=== PATIENT | female | born 1965 | race Caucasian/White ===

== ENCOUNTER → 2016-10-04 07:37 | Day surgery (SDC) | payer BC ==
--- NOTE | 2016-09-23 21:34 | HP ---
PREOPERATIVE HISTORY AND PHYSICAL: DATE OF ADMISSION: 10/04/16 This patient is scheduled for same-day surgery admission by Dr. Rosario on Friday , 10/04/16. DATE OF PREOPERATIVE HISTORY AND PHYSICAL EXAMINATION: 09/23/16. ATTENDING SURGEON: Dr. Angela Rosario (dictated by Shanta Rangel NP) CHIEF COMPLAINT: Left breast bloody nipple discharge. HISTORY OF PRESENT ILLNESS: The patient is a 51-year-old female recently evaluated by Dr. Rosario for bloody left nipple discharge. The patient has noticed intermittent bleeding from the left nipple central duct spontaneously over the past 3 years. Occasionally, there is associated tenderness. It started in association with an episode of the nipple being very firm for 48 hours. She denies any family history of breast or ovarian cancer and denies any personal history of breast biopsies or breast complaints. She was age 9 at menarche and 42 at menopause. She was on control briefly in 1985, but denies other hormone use. She had a bilateral mammogram in June 2016, which was negative for malignant findings and also underwent an ultrasound of the left breast, which was negative for any significant findings. Dr. Rosario has examined the patient and has recommended left breast terminal duct excision as a same-day surgery procedure and described the nature of the surgical procedure, the rationale for the procedure, the relevant risks, benefits, and alternatives, and today I reviewed the expected postoperative care and recovery. The patient has had a chance to ask questions and stated that she understands the information and is satisfied with the answers given to her questions. She will sign surgical consent on the day of surgery. PAST MEDICAL HISTORY: Significant for hypertension and acid reflux; she is followed for primary care by Dr. Fatmata Bailey. PAST SURGICAL HISTORY: section in 1990 and 1995. MEDICATIONS: 1. Metoprolol 25 mg p.o. b.i.d. 2. Pantoprazole 40 mg p.o. daily in the morning. 3. Estrace 0.1 mg/g twice weekly. 4. Vitamin D supplement, cranberry supplement, and probiotic. ALLERGIES: PENICILLIN and SULFA drugs caused rash. CASHEW NUTS caused coughing , sneezing, and itchy throat. FAMILY HISTORY: No known breast cancer or ovarian cancer; no known anesthesia complications, bleeding tendencies, or clotting disorders. 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 She quit smoking 25 years ago. She drinks on average one alcoholic beverage per week and 1 cup of decaf daily. REVIEW OF SYSTEMS: She denies any recent acute illnesses or constitutional symptoms. She denies any history of angina or myocardial infarction; she is treated for hypertension; she denies any chest pain, pressure, palpitations, or dizziness; she denies any history of deep vein thrombosis or pulmonary embolism. She denies any respiratory conditions or complaints. She quit smoking 25 years ago; she denies any previous anesthesia reactions. She has had acid reflux and is being treated with pantoprazole and is going to have the head of her bed elevated; she denies any other gastrointestinal complaints. She denies any genitourinary complaints or conditions. She denies any bleeding tendencies and has never received a blood transfusion. She denies any musculoskeletal complaints and denies any neurologic complaints. PHYSICAL EXAMINATION GENERAL SURVEY: The patient is a 51-year-old female, obese, well developed, in no acute distress. VITAL SIGNS: Height 63 inches, weight 234 pounds, body mass index 41.4, blood pressure 160/98, pulse 63 and regular, respiratory rate 16, temperature 98.2 tympanic. HEENT: Benign. NECK: Supple. No cervical lymphadenopathy. No thyromegaly. BACK: No CVA tenderness. LUNGS: Breath sounds bilaterally clear and equal. HEART: Regular rate and rhythm. No murmurs or rubs appreciated. BREASTS: Asymmetric, right greater than left. No skin dimpling. No nipple retraction bilaterally. Palpation of the right breast reveals no discrete masses or nipple discharge. Palpation of the left breast reveals no discrete masses, but there is bloody nipple discharge along with some solid material. ABDOMEN: Obese, active bowel sounds, soft, nondistended, nontender throughout, no obvious masses, organomegaly, or evidence of umbilical hernia. PELVIC AND RECTAL: Done within the past year, not repeated. EXTREMITIES: Warm without edema or skin ulcerations. NEUROLOGIC: Alert and oriented x3. Steady gait. SKIN: Warm, dry, and intact. IMPRESSION: Bloody nipple discharge, left breast; the surgical pathology revealed a fragment of benign intraductal papilloma. PLAN: Same-day surgery admission to Dr. Rosario's service on 10/04/16, for left breast terminal duct excision. SHANTA RANGEL NP CC: Dr. Rosario; [facility]; Dr. Fatmata Bailey * [id number]/[facility] #: [id number] [facility]
[~2016-10-04 07:37] MED LIST: Buffered Lidocaine 1% SYRIN* 3 ML/SYR SYRINGE INTRADERM ONE; Bupivacaine 0.5% SDV PF* 30 ML VIAL ONE; Bupivacaine 0.5% W/EPI SDV* 30 ML VIAL ONE; Dexamethasone IV* 4 MG/ML 1 ML (4 MG) ONE; Famotidine IV* 10 MG/ML 2 ML (20 mg) IV ONE; Famotidine IV* 10 MG/ML 2 ML (20 mg) ONE; KETAMINE HCL* 50 MG/ML 10 ML VIAL ONE; Lidocaine 1% INJ* 10 MG/ML 30 ML SDV ONE; Lidocaine 2% PF* 5 ML VIAL ONE; Metoprolol Tartrate IV* 1 MG/ML 5 ML VIAL ONE; Midazolam* 1 MG/ML 5 ML VIAL (5 MG) ONE; Morphine INJ* 2 MG/ML 1 ML SYRINGE IV PRN; Ondansetron INJ* 2 MG/ML VIAL ONE; PROCHLORPERAZINE INJ 5 MG/ML 2 ML VIAL IV PRN; PROCHLORPERAZINE INJ 5 MG/ML 2 ML VIAL ONE; Phenylephrine INJ* 10 MG/ML 1 ML VIAL (10 MG) ONE; Propofol* 10 MG/ML 20 ML BTL IV PUSH ONE; Scopolamine 1.5 mg* PATCH ONE; ceFAZolin 2 GM PREMIX(*) 2 GM/50 ML BAG IVPB ONE; fentaNYL* 50 MCG/ML 2 ML VIAL (100 MCG VIAL) IV PRN; fentaNYL* 50 MCG/ML 2 ML VIAL (100 MCG VIAL) ONE; hydrALAZINE IV* 20 MG/ML VIAL ONE; oxyCODONE/Acetamin 5/325 MG* TAB PO PRN
--- NOTE | 2016-10-04 09:58 | SURGPN ---
Brief Operative Note - Surgery Procedures: Procedures ASPIRAT CURET-POST DELIV (04/02/94) MONITORING NOS (03/15/96) LOW CERVICAL (03/15/96) 10/04/16 Op Note Pre-op dx: left breast bloody nipple discharge Post-op dx: same Procedure: Left terminal duct excision Surgeon: Abraham Asst: none Anesth: local-MAC EBL: 5 cc SCDs on during surgery Abx: given pre-op Complications: None Pt. tolerated procedure well and was transferred to in a stable condition. [facility]
[2016-10-04 12:59] VITALS: BP 133/70
--- NOTE | 2016-10-05 01:11 | OP ---
DATE OF OPERATION: 10/04/16 - [facility] DATE OF : 61 SURGEON: Angela Rosario MD STATISTICIAN: There was no glass ribbon machine operator assistant for this case. ANESTHESIOLOGIST: Tacos Gallegos MD ANESTHESIA: MAC PRE-OP DIAGNOSIS: Bloody nipple discharge, left breast. POST-OP DIAGNOSIS: Bloody nipple discharge, left breast. OPERATIVE PROCEDURE: Left breast terminal duct excision. INDICATIONS: Ms. Ortiz is a 51-year-old woman who presented to the office with bloody nipple discharge, which when manipulated, produced some grumous material. This was sent for pathology and appeared consistent with papilloma. Plans were made for surgical intervention. DESCRIPTION OF PROCEDURE: She was brought to the operating room, placed on the OR table in the supine position, and given IV sedation. The left breast was prepped and draped in the usual sterile fashion. After infiltrating with local anesthetic, the duct producing the bloody discharge was manipulated with a probe and then a curvilinear circumareolar incision was made. Subcutaneous tissue was divided with electrocautery to elevate the areola until the duct with the probe in it was encountered. This was then encircled with mosquito clamp and divided and ligated. The tissue surrounding the duct was then excised using electrocautery and handed off as a specimen with usual markings in addition to double stitch marking the duct. Hemostasis was achieved with electrocautery. The wound was irrigated with saline and marked with clips and then closure was accomplished after infiltrating with additional local anesthetic. 3-0 Polysorb was used to close the subcutaneous tissue and the skin was closed with 4-0 Surgipro in a subcuticular fashion. Steri-Strips and a dry sterile dressing were applied. All sponge and instrument counts were correct. The patient tolerated the procedure well and was transferred to recovery in stable condition. CC: [facility]; Fatmata Bailey MD * [id number]/[facility] #: [id number] MTDD
== END | disposition home or self-care (01) ==
LOC: OR 07:37
PROVIDERS: ATTEND Surgery
DX: N60.12 Diffuse cystic mastopathy of left breast (principal); N64.52 Nipple discharge; Z87.891 Personal history of nicotine dependence; I10 Essential (primary) hypertension
CPT/HCPCS: 88307; A9270-GY; J0360; J0690; J0780; J1100; J2001; J2250; J2405; J2704; J3010

== ENCOUNTER 2017-09-11 06:12 | Day surgery (SDC) | payer BC ==
--- NOTE | 2017-09-01 06:44 | HP ---
CC: Dr. Bahena; Dr. Bailey * PREOPERATIVE HISTORY AND PHYSICAL: DATE OF ADMISSION: 09/11/17 This patient is scheduled for same-day surgery admission by Dr. David on , 09/11/17. DATE OF PREOPERATIVE HISTORY AND PHYSICAL EXAMINATION: 08/29/17. ATTENDING SURGEON: Dr. Tacos David * (dictated by Eva Veliz NP). CHIEF COMPLAINT: Gastroesophageal reflux disease. HISTORY OF PRESENT ILLNESS: The patient is a 52-year-old female referred to Dr. David from Dr. Bahena and Dr. Bailey for evaluation of gastroesophageal reflux disease. She has had symptoms for over 20 years now and has been on and off various medications. She is now dependent on both omeprazole and ranitidine daily. She had an upper endoscopy, 05/13/17, with Dr. Bahena, which revealed a large hiatal hernia and Lerma's esophagitis and CLOtest was negative. Dr. David has reviewed the above findings with the patient and discussed the pros and cons of surgery and what to expect with the surgery and she would like to proceed with laparoscopic Ida fundoplication. Dr. David described the nature of the surgical procedure, the relevant risks and benefits , and today I reviewed the typical postoperative care and recovery including postoperative dietary guidelines. The patient has had a chance to ask questions and stated that she understands the information and is satisfied with the answers given to her questions. She will sign surgical consent on the day of surgery. PAST MEDICAL HISTORY: Significant for acid reflux as described in the history of present illness and hypertension. She is followed for primary care by Dr. Fatmata Bailey. PAST SURGICAL HISTORY: section, 1990 and 1995; left terminal duct excision, September 2016, for a benign intraductal papilloma of the left breast. MEDICATIONS: 1. Metoprolol 50 mg p.o. daily. 2. Omeprazole 20 mg p.o. daily. 3. Ranitidine 150 mg p.o. daily at bedtime. 4. Estrace 0.1 mg twice weekly. 5. Vitamin D supplement. 6. Cranberry supplement. 7. Probiotic. ALLERGIES: PENICILLIN and SULFA DRUGS cause rash, CASHEW NUTS cause sneezing and itchy throat. FAMILY HISTORY: No known anesthesia complications, bleeding tendencies, or clotting disorders. Father with the history of hypertension and kidney disease. Mother, hypothyroid. 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 REVIEW OF SYSTEMS: Constitutional: No fevers, chills, excessive fatigue, or weight loss. Endocrine: No diabetes or thyroid disease. Hematologic: No easy bruising or bleeding. No history of blood transfusions. Respiratory: No dyspnea on exertion or chronic cough. Cardiovascular: No anginal chest pain or palpitations. Gastrointestinal: As described in history of present illness. No diarrhea, GI bleeding, or constipation. Genitourinary: No dysuria. Musculoskeletal: No chronic back or joint pain. Neurologic: No headache or blurred vision or areas of focal weakness. General: No history of deep vein thrombosis or pulmonary embolism; she reports a slow recovery from anesthesia associated with vomiting after her breast surgery in September 2016. PHYSICAL EXAMINATION GENERAL SURVEY: The patient is a 52-year-old female, well-developed, obese, in no acute distress. VITAL SIGNS: Height 63 inches, weight 233 pounds, body mass index 41.3. Blood pressure 108/78, pulse 78 and regular, respiratory rate 18, temperature 97.7 tympanic. HEENT: Benign. NECK: Supple. No cervical lymphadenopathy. LUNGS: Breath sounds bilaterally clear and equal. HEART: Regular rate and rhythm. No murmurs or rubs appreciated. ABDOMEN: Obese, soft, nondistended, nontender throughout. No obvious masses, organomegaly or evidence of ventral hernia. PELVIC: Deferred. RECTAL: Deferred. EXTREMITIES: Warm without edema or skin ulceration. NEUROLOGIC: Alert and oriented x3. Steady gait. SKIN: Warm, dry, intact. IMPRESSION: Gastroesophageal reflux disease. PLAN: Same-day surgery admission to Dr. David's service on , 09/11/17 , for laparoscopic Dia fundoplication. SHANTA VELIZ NP [id number]/[facility] #: [id number] MTDD
[~2017-09-11 06:12] MED LIST changes: +Buffered Lidocaine 0.9% SYRIN* 5 ML/SYR SYRINGE INTRADERM ONE; -Buffered Lidocaine 1% SYRIN* 3 ML/SYR SYRINGE INTRADERM ONE; -Bupivacaine 0.5% SDV PF* 30 ML VIAL ONE; -Bupivacaine 0.5% W/EPI SDV* 30 ML VIAL ONE; -Dexamethasone IV* 4 MG/ML 1 ML (4 MG) ONE; -Famotidine IV* 10 MG/ML 2 ML (20 mg) IV ONE; -Famotidine IV* 10 MG/ML 2 ML (20 mg) ONE; -KETAMINE HCL* 50 MG/ML 10 ML VIAL ONE; -Lidocaine 1% INJ* 10 MG/ML 30 ML SDV ONE; -Lidocaine 2% PF* 5 ML VIAL ONE; -Metoprolol Tartrate IV* 1 MG/ML 5 ML VIAL ONE; -Midazolam* 1 MG/ML 5 ML VIAL (5 MG) ONE; -Morphine INJ* 2 MG/ML 1 ML SYRINGE IV PRN; -Ondansetron INJ* 2 MG/ML VIAL ONE; -PROCHLORPERAZINE INJ 5 MG/ML 2 ML VIAL IV PRN; -PROCHLORPERAZINE INJ 5 MG/ML 2 ML VIAL ONE; -Phenylephrine INJ* 10 MG/ML 1 ML VIAL (10 MG) ONE; -Propofol* 10 MG/ML 20 ML BTL IV PUSH ONE; -Scopolamine 1.5 mg* PATCH ONE; -ceFAZolin 2 GM PREMIX(*) 2 GM/50 ML BAG IVPB ONE; -fentaNYL* 50 MCG/ML 2 ML VIAL (100 MCG VIAL) IV PRN; -fentaNYL* 50 MCG/ML 2 ML VIAL (100 MCG VIAL) ONE; -hydrALAZINE IV* 20 MG/ML VIAL ONE; -oxyCODONE/Acetamin 5/325 MG* TAB PO PRN
[2017-09-11] MEDS ORDERED: Clindamycin 900 MG IVPREMIX(* 900 MG/50 ML SDV IV ONE (06:13)
[2017-09-11] MEDS ORDERED: Rocuronium* 10 MG/ML VIAL ONE (07:30)
[2017-09-11] MEDS ORDERED: fentaNYL* 50 MCG/ML 2 ML VIAL (100 MCG VIAL) ONE ×2 (07:33→11:00)
[2017-09-11] MEDS ORDERED: Midazolam* 1 MG/ML 2 ML VIAL (2 MG) ONE (07:38)
[2017-09-11] MEDS ORDERED: Ketorolac INJ* 30 MG/ML 1 ML VIAL IV PRN (08:31)
[2017-09-11] MEDS ORDERED: Naloxone* 0.4 MG/ML 1 ML VIAL IV PRN (08:31)
[2017-09-11] MEDS ORDERED: Ondansetron INJ* 2 MG/ML VIAL IV PRN (08:31)
[2017-09-11] MEDS ORDERED: HYDROcodone/ACET. 7.5/325 LIQ* 15 ML UDC PO PRN (09:13)
[2017-09-11] MEDS ORDERED: Bupivacaine 0.25% SDV* 30 ML ONE (09:32)
[2017-09-11] MEDS ORDERED: Labetalol IV* 5 MG/ML 20 ML VIAL ONE ×2 (09:37→11:54)
[2017-09-11] MEDS ORDERED: Ketorolac INJ* 30 MG/ML 1 ML VIAL ONE (10:08)
[2017-09-11] MEDS ORDERED: Ondansetron INJ* 2 MG/ML VIAL ONE (10:31)
[2017-09-11] MEDS: fentaNYL* 50 MCG/ML 2 ML VIAL (100 MCG VIAL) IV PRN ×2 (11:01→11:35)
[2017-09-11] MEDS ORDERED: Lidocaine 2% PF * 5 ML VIAL ONE (11:54)
[2017-09-11] MEDS ORDERED: Glycopyrrolate IV* 0.2 MG/ML 1 ML VIAL ONE (11:54)
[2017-09-11] MEDS ORDERED: Neostigmine Methylsulfate* 1 MG/ML 10 ML VIAL (1 mg/ml) ONE (11:54)
[2017-09-11] MEDS ORDERED: Propofol* 10 MG/ML 20 ML BTL IV PUSH ONE (11:54)
[2017-09-11] MEDS ORDERED: DiMENhydriNATE IV* 50 MG/ML VIAL ONE (12:12)
[2017-09-11 12:41] VITALS: BP 149/81
--- NOTE | 2017-09-12 00:11 | OP ---
CC: Dr. Fatmata Bailey; Dr. Nirav Bahena * DATE OF OPERATION: 09/11/17 - [facility] DATE OF : 61 SURGEON: Tacos David MD NUCLEAR MEDICINE TECHNOLOGIST: SERGIO Henriquez ANESTHESIOLOGIST: Liban Boyd DO ANESTHESIA: General anesthetic, local infiltration. PRE-OP DIAGNOSIS: Gastroesophageal reflux disease. POST-OP DIAGNOSIS: Gastroesophageal reflux disease. OPERATIVE PROCEDURE: Laparoscopic Ida fundoplication. DESCRIPTION OF PROCEDURE: The patient was supine on the operating room table. After adequate general anesthetic, compression stockings, Sandra Hugger warmer, and intravenous antibiotics, the patient was placed in the split leg position, appropriately secured to the table, and the abdomen was prepped with antiseptic and draped in a sterile fashion. The right upper quadrant 5-mm Visiport cannula was placed under direct vision. Insufflation was carried out with carbon dioxide. Additional cannulae, 5-mm supraumbilical and subxiphoid and left anterior axillary line and the 12-mm left subcostal, placed through small stab wounds under direct vision. There was a moderate-sized sliding hiatal hernia, which was readily reduced. Dissection was carried out in the usual fashion through the gastrohepatic omentum on to the caudate lobe and on to the right darin. Retroesophageal dissection was carried out and Jania drain was placed for retraction and the esophagus was well dissected free and brought down into the abdominal cavity. The darin was closed around 54-Armenian bougie, it was not too tight, and a wrap was carried out 2 sutures of 0 Ethibond and this was tacked to the esophageal wall to prevent slippage. This was also not too tight around a 54-Armenian bougie. Everything was in good condition. Hemostasis was good and the pneumoperitoneum was allowed to escape, cannulae were removed, the skin was closed with 4-0 Vicryl followed by Steri-Strips. She tolerated the procedure well, was awakened and brought to Recovery in good condition. No complications. No drains. No pathologic specimens. Sponge and instrument counts correct. Estimated blood loss was less than 20 mL. [id number]/[facility] #: [id number] [facility]
== END 2017-09-11 13:01 | disposition home or self-care (01) ==
LOC: OR 06:12
PROVIDERS: ATTEND Surgery
DX: K21.0 Gastro-esophageal reflux disease with esophagitis (principal); K44.9 Diaphragmatic hernia without obstruction or gangrene; Z68.41 Body mass index [BMI] 40.0-44.9, adult; I10 Essential (primary) hypertension; Z87.891 Personal history of nicotine dependence
CPT/HCPCS: J1240; J1885; J2250; J2405; J2704; J2710; J3010

== ENCOUNTER 2021-04-05 14:03 | Observation (INO) ==
[~2021-04-05 14:03] MED LIST changes: -Buffered Lidocaine 0.9% SYRIN* 5 ML/SYR SYRINGE INTRADERM ONE; +Buffered Lidocaine 1% SYRIN 1 ml INTRADERM ONE; +Lactated Ringers 1000 ml BAG 1,000 ML IV SCH
[2021-04-05 14:46] LABS: Urine Appearance Cloudy; Urine Bilirubin Negative (Negative); Urine Blood Negative (Negative); Urine Color Yellow; Urine Glucose Negative (Negative); Urine Ketones Negative (Negative); Urine Nitrite Negative (Negative); Urine Protein Negative (Negative); Urine Urobilinogen Negative (Negative)
[2021-04-05] MEDS ORDERED: Buffered Lidocaine 1% SYRIN 1 ml INTRADERM ONE (14:52)
[2021-04-05] MEDS ORDERED: Clindamycin 900 MG/D5W BAG 900 MG/50 ML BAG IVPB ONE (14:52)
[2021-04-05 14:53] LABS: Urine Bacteria Absent (Absent); Urine Red Blood Cell Trace(0-2/hpf) (Absent); Urine Squamous Epithelial Cell Present (Absent); Urine White Blood Cell 3+(>20/hpf) (Absent)
[2021-04-05] MEDS ORDERED: fentaNYL 250 mcg/5 ml 50 MCG/ML 5 ml VIAL (250 MCG) ONE (15:27)
[2021-04-05] MEDS ORDERED: Propofol 10 MG/ML 20 ML BTL ONE (15:27)
[2021-04-05] MEDS ORDERED: Midazolam 5 mg/5 ml VIAL 1 mg/ml 5 ml VIAL (5 mg) ONE (15:46)
[2021-04-05] MEDS ORDERED: ROPIVACAINE 5 MG/ML 30 ML BTL (0.5%) ONE (15:51)
[2021-04-05] MEDS ORDERED: Lidocaine 2% PF 10 ML AMP ONE ×2 (15:51→15:52)
[2021-04-05] MEDS ORDERED: Lidocaine 1% MPF 5 ML VIAL ONE (15:51)
[2021-04-05] MEDS ORDERED: hydrALAZINE 20 mg/ml 1 ML Vial IV IV SLOW PU ONE (16:36)
[2021-04-05] MEDS ORDERED: hydrALAZINE 20 mg/ml 1 ML Vial IV ONE (16:46)
[2021-04-05] MEDS ORDERED: oxyCODONE/Acetamin 5/325 mg TAB PO PRN (17:45)
[2021-04-05] MEDS ORDERED: Lactulose 30 ml UDC PO PRN (17:45)
[2021-04-05] MEDS ORDERED: Magnesium Hydroxide LIQ 30 ML UDC PO PRN (17:45)
[2021-04-05] MEDS ORDERED: diPHENhydraMINE 25 mg TAB PO PRN (17:45)
[2021-04-05] MEDS ORDERED: Ondansetron ODT 4 mg TAB 4 MG TAB PO PRN (17:45)
[2021-04-05] MEDS ORDERED: Ondansetron 4 mg VIAL 2 MG/ML 2 ml VIAL IV PRN (17:45)
[2021-04-05] MEDS ORDERED: diPHENhydraMINE IV 50 MG/ML 1 ml VIAL (BENADRYL) IV PRN (17:45)
[2021-04-05] MEDS ORDERED: Heparin 5000 UNITS/ML 1 mL VIAL SUBCUT SCH (21:00)
[2021-04-05] MEDS: Magnesium Hydroxide LIQ 30 ML UDC PO SCH (21:11)
[2021-04-06] MEDS ORDERED: Ondansetron 4 mg VIAL 2 MG/ML 2 ml VIAL IV PRN (03:42)
[2021-04-06 07:04] LABS: Hematocrit 40 % (35-47); Hemoglobin 13.4 g/dL (12.0-16.0); Mean Platelet Volume 6.8 fL (7.4-10.4); Platelet Count 340 10^3/uL (150-450)
[2021-04-06 07:11] LABS: EGFR African American 97.5 (>60); EGFR Non-African American 80.6 (>60); Potassium 3.9 mmol/L (3.5-5.0)
[2021-04-06] MEDS: Vitamin THERAPEUTIC TAB PO SCH (10:11)
[2021-04-06] MEDS: Magnesium Hydroxide LIQ 30 ML UDC PO SCH ×2 (10:13→21:49)
[2021-04-06] MEDS ORDERED: Calcium Carb (TUMS) 500 mg CHEW TAB PO PRN (10:59)
[2021-04-06] MEDS: oxyCODONE/Acetamin 5/325 mg TAB PO PRN ×2 (14:58→21:49)
[2021-04-06] MEDS ORDERED: Estradiol VAG CM (NF) 1 APPLIC TUBE VAGINAL SCH (21:00)
[2021-04-07] MEDS ORDERED: Morphine 2 MG/ML SYRINGE IV PRN (04:34)
[2021-04-07] MEDS: Vitamin THERAPEUTIC TAB PO SCH (07:16)
[2021-04-07] MEDS ORDERED: Bupivacaine 0.25% SDV 30 ML ONE (07:16)
[2021-04-07] MEDS: Magnesium Hydroxide LIQ 30 ML UDC PO SCH (07:16)
[2021-04-07] MEDS ORDERED: ROPIVACAINE 5 MG/ML 30 ML BTL (0.5%) ONE (07:45)
[2021-04-07] MEDS ORDERED: Rocuronium 50 mg VIAL 10 mg/ml 5 ml VIAL (50 mg) ONE (07:45)
[2021-04-07] MEDS ORDERED: Lidocaine 2% PF 5 ML VIAL ONE (07:45)
[2021-04-07] MEDS ORDERED: Propofol 10 MG/ML 20 ML BTL ONE (07:45)
[2021-04-07] MEDS ORDERED: Midazolam 2 mg/2 ml VIAL 1 mg/ml 2 ml VIAL (2 mg) ONE (07:45)
[2021-04-07] MEDS ORDERED: fentaNYL 100 mcg/2 ml 50 MCG/ML VIAL ONE ×3 (07:45→10:01)
[2021-04-07] MEDS ORDERED: fentaNYL 100 mcg/2 ml 50 MCG/ML VIAL IV PRN (07:52)
[2021-04-07] MEDS ORDERED: Ondansetron 4 mg VIAL 2 MG/ML 2 ml VIAL IV PRN (07:52)
[2021-04-07] MEDS ORDERED: Naloxone 0.4 mg VIAL 0.4 mg/ml 1 ml VIAL IV PRN (07:52)
[2021-04-07] MEDS ORDERED: HYDROmorphone 1 MG/1 ML SYRINGE IV PRN (07:52)
[2021-04-07] MEDS ORDERED: Clindamycin 900 MG/D5W BAG 900 MG/50 ML BAG IVPB ONE (08:07)
[2021-04-07 12:07] VITALS: BP 135/62
== END 2021-04-07 12:53 | disposition home or self-care (01) ==
LOC: OR 14:03 → SSU 17:45 → INTOOBSV 17:45
PROVIDERS: ADMIT Orthopaedic Surgery Hand Surgery; ATTEND Orthopaedic Surgery Hand Surgery